=== PATIENT | male | born 1925 | race Caucasian/White ===

== ENCOUNTER 2016-09-15 12:19 | Inpatient (IN) | payer OTHER ==
[~2016-09-15] VITALS: Ht 177.8 cm; Wt 99.9 kg
[~2016-09-15 12:19] MED LIST: ACAR50TA9 PO; AMOX500T92; ASPI81CH43 PO; ATOR40TA52 PO; DIABETIC MED; FERR324T11; GLYB5TAB66 PO; LISI10TA6 PO; TAM04C PO; TRAM50TA2
[2016-09-15 12:56] LABS: Basophils # (auto) 0 uL; CONDITION Y; Eosinophils # (auto) 0.3 uL; Eosinophils % (auto) 2.5 % (0.0-7.0); Hematocrit 25.5 % (41.0-53.0); Hemoglobin 8.8 g/dL (13.5-17.5); Lymphocytes # (auto) 2.5 uL; Lymphocytes % (auto) 19.5 % (10.0-50.0); Mean Corpuscular Hemoglobin 31.4 pg (28.0-32.0); Mean Corpuscular Hgb Conc. 34.5 g/dL (32.0-36.0); Mean Corpuscular Volume 90.8 fL (80.0-100.0); Mean Platelet Volume 10.5 fL (7.4-10.4); Monocytes # (auto) 1.2 uL; Monocytes % (auto) 9.8 % (0.0-12.0); Neutrophils # (auto) 8.6 uL; Neutrophils % (auto) 68.2 % (37.0-80.0); Platelet Count (auto) 161 10^3/uL (140-450); Red Cell Distribution Width 13.7 % (11.6-16.0); White Blood Cell 12.6 10^3/uL (4.4-10.8)
[2016-09-15 13:22] LABS: Albumin 2.8 g/dL (3.4-5.0); Bilirubin, Total 0.3 mg/dL (0.2-1.0); Calcium 8.4 mg/dL (8.5-10.1); Potassium 4.3 mmol/L (3.5-5.1); Total Protein 6.6 g/dL (6.4-8.2)
[2016-09-15] MEDS ORDERED: ACETAMINOPHEN 500 MG TAB PO PRN (15:45)
[2016-09-15] MEDS ORDERED: DEXTROSE (50%) 50ML SYRG IV PRN (15:45)
[2016-09-15] MEDS ORDERED: PROMETHAZINE HCL 25 MG/ML 1ML IV PRN (15:45)
[2016-09-15] MEDS ORDERED: MORPHINE SULF INJ 2 MG/ML SYRINGE 1ML IV PRN (15:45)
[2016-09-15] MEDS ORDERED: cefTRIAXone 1GM/50ML D5W 50 ML IV ONE (15:45)
[2016-09-15] MEDS ORDERED: NITROGLYCERIN 0.4 MG SL TAB SL PRN (15:45)
[2016-09-15] MEDS ORDERED: LORazepam 0.5 MG TAB PO PRN (15:45)
[2016-09-15] MEDS ORDERED: TEMAZEPAM 15 MG CAP PO PRN (15:45)
[2016-09-15] MEDS ORDERED: HYDROcodone-ACET 5/325MG TAB PO PRN (15:45)
[2016-09-15 17:05] LABS: INR 1.01 (0.9-1.15); Partial Thromboplastin Time 28.6 sec (22.64-33.71)
[2016-09-15 17:49] LABS: Urine Bilirubin Negative (Negative); Urine Glucose Normal (Normal); Urine Ketone Negative (Negative); Urine Nitrite Negative (Negative); Urine RBC 804 /hpf (0 - 3); Urine Urobilinogen Normal (Negative)
[2016-09-15 17:51] LABS: Urine Blood 3+ /uL (Negative); Urine Color Pink (Yellow)
[2016-09-15] MEDS: SODIUM CHLORIDE 0.9% 1,000 ML IV SCH (18:08)
[2016-09-15] MEDS: InsuLIN REG 1unit/0.01ml Soln (100units/ml) SC SCH ×2 (18:29→22:00)
[2016-09-15] MEDS: ACCU-CHEK COMFORT CURVE STRIP VI SCH ×2 (18:29→22:00)
[2016-09-15 20:03] LABS: Hematocrit 27.6 % (41.0-53.0); Hemoglobin 9.6 g/dL (13.5-17.5)
[2016-09-15 22:31] VITALS: BP 147/72
[2016-09-15 23:20] LABS: Hematocrit 25.1 % (41.0-53.0); Hemoglobin 8.5 g/dL (13.5-17.5)
[2016-09-16] VITALS (9 sets, daily range): BP systolic 105–176; BP diastolic 58–84
[2016-09-16] MEDS: MORPHINE SULFATE 4 MG/ML SYRG IV PRN ×2 (01:46→06:58)
[2016-09-16] MEDS: SODIUM CHLORIDE 0.9% 1,000 ML IV SCH ×3 (01:47→22:40)
[2016-09-16 06:53] LABS: Basophils # (auto) 0 uL; Basophils % (auto) 0.4 % (0.0-2.0); CONDITION Y; Eosinophils # (auto) 0.4 uL; Hematocrit 25.5 % (41.0-53.0); Hemoglobin 8.7 g/dL (13.5-17.5); Lymphocytes # (auto) 1.4 uL; Lymphocytes % (auto) 13.1 % (10.0-50.0); Mean Corpuscular Hgb Conc. 34.3 g/dL (32.0-36.0); Mean Corpuscular Volume 93.3 fL (80.0-100.0); Mean Platelet Volume 10.5 fL (7.4-10.4); Monocytes # (auto) 1.1 uL; Monocytes % (auto) 10.4 % (0.0-12.0); Neutrophils # (auto) 7.5 uL; Neutrophils % (auto) 72.1 % (37.0-80.0); Platelet Count (auto) 112 10^3/uL (140-450); Red Cell Distribution Width 13.8 % (11.6-16.0); SUSPECT SEE PRINTOUT; White Blood Cell 10.4 10^3/uL (4.4-10.8)
[2016-09-16] MEDS: ACCU-CHEK COMFORT CURVE STRIP VI SCH ×4 (06:57→22:40)
[2016-09-16] MEDS: InsuLIN REG 1unit/0.01ml Soln (100units/ml) SC SCH ×4 (06:57→22:41)
[2016-09-16 07:24] LABS: Albumin 2.6 g/dL (3.4-5.0); BUN/Creatinine Ratio 16.3; Calcium 7.9 mg/dL (8.5-10.1); Potassium 4.4 mmol/L (3.5-5.1)
[2016-09-16 07:27] LABS: Bilirubin, Total 0.3 mg/dL (0.2-1.0); Total Protein 6.2 g/dL (6.4-8.2)
[2016-09-16] MEDS: cefTRIAXone 1GM/50ML D5W 50 ML IV SCH (10:18)
[2016-09-16] MEDS ORDERED: LEVO50TA7 PO (12:11)
[2016-09-16] MEDS ORDERED: hydrALAZINE HCL 25 MG TAB PO PRN (12:30)
[2016-09-16] MEDS ORDERED: traMADol HCL 50 MG TAB PO PRN (12:30)
[2016-09-16] MEDS: LEVOTHYROXINE SODIUM 50 MCG TAB PO SCH (13:20)
[2016-09-16] MEDS: glyBURIDE 5 MG TAB PO SCH (18:15)
[2016-09-16] MEDS: ACARBOSE 50 MG PO SCH (18:15)
[2016-09-16] MEDS ORDERED: TAMSULOSIN HYDROCHLORIDE 0.4 MG CAP PO SCH (22:00)
[2016-09-16] MEDS ORDERED: ATORVASTATIN 20 MG TAB PO SCH (22:00)
[2016-09-17 00:30] VITALS: BP 140/66
[2016-09-17] MEDS: MORPHINE SULFATE 4 MG/ML SYRG IV PRN (00:55)
[2016-09-17 05:04] VITALS: BP 125/59
[2016-09-17] MEDS: InsuLIN REG 1unit/0.01ml Soln (100units/ml) SC SCH ×2 (06:01→11:30)
[2016-09-17] MEDS: ACCU-CHEK COMFORT CURVE STRIP VI SCH ×2 (06:02→11:37)
[2016-09-17] MEDS: LEVOTHYROXINE SODIUM 50 MCG TAB PO SCH (06:08)
[2016-09-17 06:52] LABS: Basophils # (auto) 0 uL; Basophils % (auto) 0.4 % (0.0-2.0); CONDITION Y; DEFINITIVE SEE PRINTOUT; Eosinophils # (auto) 0.3 uL; Eosinophils % (auto) 2.6 % (0.0-7.0); Hematocrit 23.1 % (41.0-53.0); Hemoglobin 7.9 g/dL (13.5-17.5); Lymphocytes # (auto) 1.7 uL; Lymphocytes % (auto) 15.8 % (10.0-50.0); Mean Corpuscular Hemoglobin 31.1 pg (28.0-32.0); Mean Corpuscular Hgb Conc. 34.1 g/dL (32.0-36.0); Mean Corpuscular Volume 91.4 fL (80.0-100.0); Mean Platelet Volume 10.4 fL (7.4-10.4); Monocytes # (auto) 1.5 uL; Monocytes % (auto) 14.3 % (0.0-12.0); Neutrophils % (auto) 66.9 % (37.0-80.0); Platelet Count (auto) 132 10^3/uL (140-450); Red Cell Distribution Width 13.7 % (11.6-16.0); White Blood Cell 10.5 10^3/uL (4.4-10.8)
[2016-09-17 07:09] LABS: BUN/Creatinine Ratio 16.5; Calcium 7.6 mg/dL (8.5-10.1)
[2016-09-17] MEDS: glyBURIDE 5 MG TAB PO SCH (08:39)
[2016-09-17] MEDS: ACARBOSE 50 MG PO SCH ×2 (08:40→11:38)
[2016-09-17 09:00] VITALS: BP 129/69
[2016-09-17] MEDS ORDERED: PATIENTS OWN MEDICATION (Atorvastatin Calcium 40 MG) PO SCH ×2 (10:00)
[2016-09-17] MEDS: cefTRIAXone 1GM/50ML D5W 50 ML IV SCH (10:30)
[2016-09-17] MEDS: SODIUM CHLORIDE 0.9% 1,000 ML IV SCH (11:00)
[2016-09-17 12:49] VITALS: BP 128/72
== END 2016-09-17 13:50 | disposition home health service (06) | DRG 683 ==
LOC: EDBD 12:19 → ER 12:35 → TELE 12:36 → TELE-EAST 21:44
PROVIDERS: ADMIT Internal Medicine; ATTEND Family Medicine
DX: N17.9 Acute kidney failure, unspecified (principal); N39.0 Urinary tract infection, site not specified; D62 Acute posthemorrhagic anemia; I12.9 Hypertensive chronic kidney disease with stage 1 through stage 4 chronic kidney disease, or unspecified chronic kidney disease; E11.22 Type 2 diabetes mellitus with diabetic chronic kidney disease; R31.0 Gross hematuria; D63.1 Anemia in chronic kidney disease; B96.1 Klebsiella pneumoniae [K. pneumoniae] as the cause of diseases classified elsewhere; E03.9 Hypothyroidism, unspecified; I70.8 Atherosclerosis of other arteries; K40.20 Bilateral inguinal hernia, without obstruction or gangrene, not specified as recurrent; K59.00 Constipation, unspecified; N18.3 Chronic kidney disease, stage 3 (moderate); N32.89 Other specified disorders of bladder; N36.5 Urethral false passage; N40.0 Benign prostatic hyperplasia without lower urinary tract symptoms; Z96.651 Presence of right artificial knee joint; G56.02 Carpal tunnel syndrome, left upper limb; D63.8 Anemia in other chronic diseases classified elsewhere; Z90.89 Acquired absence of other organs
CPT/HCPCS: 36415; 51702; 71010; 74176; 76775; 80048; 80053; 81001; 82150; 82962; 83036; 83605; 83690; 83735; 85014; 85018; 85025; 85610; 85652; 85730; 87040; 87086; 87088; 87186; 93005; J0696; J1815

== ENCOUNTER 2017-02-26 09:24 | Inpatient (IN) | payer OTHER ==
[~2017-02-26] VITALS: Ht 180.3 cm; Wt 92.5 kg
[~2017-02-26 09:24] MED LIST changes: +LEVO50TA7 PO
[2017-02-26 10:47] LABS: Hematocrit 28.1 % (41.0-53.0); Hemoglobin 9.2 g/dL (13.5-17.5); Mean Corpuscular Hemoglobin 31.1 pg (28.0-32.0); Mean Corpuscular Hgb Conc. 32.6 g/dL (32.0-36.0); Mean Corpuscular Volume 95.5 fL (80.0-100.0); Platelet Count (auto) 75 10^3/uL (140-450); Red Blood Cells 2.94 10^6/uL (4.5-5.90); Red Cell Distribution Width 13.9 % (11.8-14.3); White Blood Cell 7.9 10^3/uL (4.4-10.8)
[2017-02-26 10:56] LABS: Band Neutrophils % (manual) 0; Basophils % (manual) 0 (0.0-2.0); Blast Cells 0; Eosinophils % (manual) 0 (0-7); Metamyelocytes % 0; Myelocytes % 0; Promyelocytes % 0; Reactive Lymphocytes 0
[2017-02-26 11:16] LABS: Albumin 3.2 g/dL (3.4-5.0); BUN/Creatinine Ratio 15.3; Bilirubin, Total 0.3 mg/dL (0.2-1.0); Calcium 8.3 mg/dL (8.5-10.1); Magnesium 2.6 mg/dL (1.6-2.6); Total Protein 6.7 g/dL (6.4-8.2)
[2017-02-26 11:30] LABS: Potassium 5.7 mmol/L (3.5-5.1)
[2017-02-26 12:08] LABS: Lymphocytes % (manual) 11 (10.0-50.0); Monocytes % (manual) 12 (0-12)
[2017-02-26 12:57] LABS: INR 1.05 (0.9-1.15); Partial Thromboplastin Time 30.7 sec (22.64-33.71); Prothrombin Time 11.4 sec (9.37-12.3)
[2017-02-26] MEDS ORDERED: InsuLIN REG 1unit/0.01ml Soln (100units/ml) SC ONE (16:15)
[2017-02-26] MEDS ORDERED: SODIUM POLYSTYRENE SULF 15GM/60ML SUSP PO ONE (16:15)
[2017-02-26] MEDS ORDERED: CALCIUM GLUC 4.65meq/50ml D5AE 50 ML IV ONE (16:15)
[2017-02-26] MEDS ORDERED: SODIUM BICARBONATE 8.4 % INJ 50ML VIAL IV ONE (16:15)
[2017-02-26] MEDS ORDERED: DEXTROSE (50%) 50ML SYRG IV PRN (16:15)
[2017-02-26] MEDS ORDERED: DEXTROSE (50%) 50ML SYRG IV ONE (16:15)
[2017-02-26] MEDS ORDERED: TEMAZEPAM 15 MG CAP PO PRN (16:30)
[2017-02-26] MEDS ORDERED: MORPHINE SULF INJ 2 MG/ML SYRINGE 1ML IV PRN ×2 (16:30)
[2017-02-26] MEDS ORDERED: DOCUSATE SOD 100 MG CAP PO PRN (16:30)
[2017-02-26] MEDS ORDERED: cloNIDine HCL 0.1 MG TAB PO PRN (16:30)
[2017-02-26] MEDS ORDERED: NITROGLYCERIN 0.4 MG SL TAB SL PRN (16:30)
[2017-02-26] MEDS ORDERED: ACETAMINOPHEN 325 MG TAB PO PRN (16:30)
[2017-02-26] MEDS ORDERED: HYDROcodone-ACET 5/325MG TAB PO PRN (16:30)
[2017-02-26] MEDS ORDERED: ONDANSETRON HCL 4 MG/2 ML VIAL IV PRN (16:30)
[2017-02-26] MEDS: InsuLIN REG 1unit/0.01ml Soln (100units/ml) SC SCH ×2 (17:10→22:00)
[2017-02-26] MEDS: ACCU-CHEK COMFORT CURVE STRIP VI SCH ×2 (17:10→22:10)
[2017-02-26] MEDS: FAMOTIDINE 20 MG TAB PO SCH (17:13)
[2017-02-26] MEDS: ACARBOSE 50 MG PO SCH (17:15)
[2017-02-26 17:46] LABS: Urine Bacteria NONE SEEN /hpf (None Seen); Urine Blood TRACE /uL (Negative); Urine Specific Gravity 1.015 (1.001-1.035); Urine WBC 2 /hpf (0 - 3)
[2017-02-26] MEDS: FERROUS SULFATE 325 MG TAB PO SCH (18:07)
[2017-02-26] MEDS: Boost Glucose Control 8 Ounces PO SCH (19:03)
[2017-02-26] MEDS: SODIUM CHLOR 0.9% PF (SALINE LOCK) 10ML VIAL IV SCH (20:03)
[2017-02-26 20:24] LABS: Albumin 3.3 g/dL (3.4-5.0); BUN/Creatinine Ratio 15.4; Bilirubin, Total 0.3 mg/dL (0.2-1.0); Calcium 8.4 mg/dL (8.5-10.1); Potassium 4.6 mmol/L (3.5-5.1); Total Protein 6.9 g/dL (6.4-8.2)
[2017-02-26] MEDS: AREDS PO SCH (22:00)
[2017-02-27 06:25] LABS: Basophils # (auto) 0 uL; Basophils % (auto) 0.5 % (0.0-2.0); Eosinophils # (auto) 0 uL; Eosinophils % (auto) 0.5 % (0.0-7.0); Hematocrit 28.2 % (41.0-53.0); Hemoglobin 9.3 g/dL (13.5-17.5); Lymphocytes # (auto) 1.5 uL; Lymphocytes % (auto) 17.4 % (10.0-50.0); Mean Corpuscular Hemoglobin 31.1 pg (28.0-32.0); Mean Corpuscular Hgb Conc. 33.1 g/dL (32.0-36.0); Mean Corpuscular Volume 93.8 fL (80.0-100.0); Monocytes # (auto) 1.4 uL; Monocytes % (auto) 15.8 % (0.0-12.0); Neutrophils # (auto) 5.7 uL; Neutrophils % (auto) 65.8 % (37.0-80.0); Platelet Count (auto) 72 10^3/uL (140-450); Red Cell Distribution Width 14.3 % (11.8-14.3); White Blood Cell 8.6 10^3/uL (4.4-10.8)
[2017-02-27 06:40] LABS: BUN/Creatinine Ratio 16.1; Calcium 8.1 mg/dL (8.5-10.1); Potassium 5.3 mmol/L (3.5-5.1)
[2017-02-27] MEDS: SODIUM CHLOR 0.9% PF (SALINE LOCK) 10ML VIAL IV SCH ×3 (06:40→21:16)
[2017-02-27 06:41] LABS: Bilirubin, Total 0.2 mg/dL (0.2-1.0); Total Protein 6.4 g/dL (6.4-8.2)
[2017-02-27] MEDS: ACCU-CHEK COMFORT CURVE STRIP VI SCH ×4 (07:47→21:06)
[2017-02-27] MEDS: InsuLIN REG 1unit/0.01ml Soln (100units/ml) SC SCH ×4 (07:50→21:17)
[2017-02-27] MEDS: ACARBOSE 50 MG PO SCH ×3 (08:00→17:52)
[2017-02-27] MEDS: FERROUS SULFATE 325 MG TAB PO SCH ×3 (08:01→17:52)
[2017-02-27] MEDS: LEVOTHYROXINE SODIUM 25 MCG TAB PO SCH (08:01)
[2017-02-27] MEDS: glipiZIDE 5 MG TAB PO SCH (08:01)
[2017-02-27] MEDS: Boost Glucose Control 8 Ounces PO SCH ×3 (08:57→18:00)
[2017-02-27] MEDS ORDERED: ENOXAPARIN SOD 30 MG/0.3 ML SYRINGE SC SCH (10:00)
[2017-02-27] MEDS: AREDS PO SCH ×2 (10:00→21:17)
[2017-02-27] MEDS ORDERED: LOSARTAN POTASSIUM 25 MG TAB PO SCH (10:00)
[2017-02-27] MEDS: FAMOTIDINE 20 MG TAB PO SCH (10:49)
[2017-02-27] MEDS: MULTIPLE VITAMIN TAB PO SCH (10:50)
[2017-02-27] MEDS: SOD CHL 0.45% 1,000 ML IV SCH (10:59)
[2017-02-27] MEDS ORDERED: ASPirin 81 mg TAB PO ONE (11:00)
[2017-02-27 18:30] VITALS: BP 123/58
[2017-02-27 19:42] VITALS: BP 138/79
[2017-02-28] VITALS: BP 125/64
[2017-02-28] MEDS: SOD CHL 0.45% 1,000 ML IV SCH ×2 (00:05→13:25)
[2017-02-28 04:00] VITALS: BP 128/67
[2017-02-28] MEDS: LEVOTHYROXINE SODIUM 25 MCG TAB PO SCH (06:09)
[2017-02-28] MEDS: ACCU-CHEK COMFORT CURVE STRIP VI SCH ×4 (06:11→21:13)
[2017-02-28] MEDS: SODIUM CHLOR 0.9% PF (SALINE LOCK) 10ML VIAL IV SCH ×3 (06:11→21:13)
[2017-02-28] MEDS: InsuLIN REG 1unit/0.01ml Soln (100units/ml) SC SCH ×4 (06:11→21:12)
[2017-02-28] MEDS: glipiZIDE 5 MG TAB PO SCH (06:11)
[2017-02-28 08:00] VITALS: BP 128/98
[2017-02-28] MEDS: Boost Glucose Control 8 Ounces PO SCH ×3 (08:00→18:40)
[2017-02-28] MEDS: FERROUS SULFATE 325 MG TAB PO SCH ×3 (09:21→18:40)
[2017-02-28] MEDS: ACARBOSE 50 MG PO SCH (09:21)
[2017-02-28] MEDS ORDERED: ASPirin 81 mg TAB PO SCH (10:00)
[2017-02-28] MEDS: MULTIPLE VITAMIN TAB PO SCH (10:11)
[2017-02-28] MEDS: FAMOTIDINE 20 MG TAB PO SCH (10:11)
[2017-02-28] MEDS: AREDS PO SCH ×2 (10:15→21:13)
[2017-02-28 11:16] LABS: Urine Amorphous Crystal FEW /hpf (None Seen); Urine Bacteria NONE SEEN /hpf (None Seen); Urine Blood 1+ /uL (Negative); Urine Specific Gravity 1.013 (1.001-1.035); Urine WBC 1 /hpf (0 - 3)
[2017-02-28 11:48] LABS: Creatinine, Urine 84.7 mg/dL (30.0-125.0); Protein, Urine 150.9 mg/dL (0.0-11.9)
[2017-02-28 12:10] VITALS: BP 119/75
[2017-02-28] MEDS ORDERED: ENOXAPARIN SOD 100 MG/1 ML SYRINGE SC SCH (13:15)
[2017-02-28 13:36] LABS: Basophils # (auto) 0 uL; Basophils % (auto) 0.4 % (0.0-2.0); Eosinophils # (auto) 0.1 uL; Hematocrit 25.8 % (41.0-53.0); Hemoglobin 8.6 g/dL (13.5-17.5); Lymphocytes # (auto) 1.6 uL; Lymphocytes % (auto) 22.3 % (10.0-50.0); Mean Corpuscular Hemoglobin 31.2 pg (28.0-32.0); Mean Corpuscular Hgb Conc. 33.5 g/dL (32.0-36.0); Mean Corpuscular Volume 93.3 fL (80.0-100.0); Monocytes # (auto) 0.9 uL; Monocytes % (auto) 12.7 % (0.0-12.0); Neutrophils # (auto) 4.4 uL; Neutrophils % (auto) 63.6 % (37.0-80.0); Platelet Count (auto) 71 10^3/uL (140-450); Red Blood Cells 2.76 10^6/uL (4.5-5.90); Red Cell Distribution Width 14.1 % (11.8-14.3)
[2017-02-28 14:28] LABS: Potassium 4.5 mmol/L (3.5-5.1)
[2017-02-28 14:29] LABS: Albumin 2.8 g/dL (3.4-5.0); BUN/Creatinine Ratio 16.6; Bilirubin, Total 0.3 mg/dL (0.2-1.0); Calcium 7.7 mg/dL (8.5-10.1); Magnesium 2.2 mg/dL (1.6-2.6); Total Protein 6.2 g/dL (6.4-8.2)
[2017-02-28] MEDS: METOPROLOL TARTRATE 25 MG TAB PO SCH ×2 (14:50→21:14)
[2017-02-28 15:18] LABS: Phosphorus 3.6 mg/dL (2.5-4.90); Uric Acid 8.1 mg/dL (3.5-7.2)
[2017-02-28 15:44] VITALS: BP 141/68
[2017-02-28] MEDS: ENOXAPARIN SOD 30 MG/0.3 ML SYRINGE SC SCH (17:42)
[2017-02-28 20:02] VITALS: BP 153/66
[2017-02-28] MEDS: ATORVASTATIN 20 MG TAB PO SCH (21:14)
[2017-03-01] VITALS (7 sets, daily range): BP systolic 122–162; BP diastolic 58–90
[2017-03-01] MEDS: SOD CHL 0.45% 1,000 ML IV SCH ×2 (02:50→17:13)
[2017-03-01 06:02] LABS: Basophils # (auto) 0 uL; Eosinophils # (auto) 0.1 uL; Mean Corpuscular Hgb Conc. 34.5 g/dL (32.0-36.0); Neutrophils # (auto) 3.4 uL; Red Cell Distribution Width 13.7 % (11.8-14.3); White Blood Cell 5.9 10^3/uL (4.4-10.8)
[2017-03-01 06:05] LABS: Basophils % (auto) 0.2 % (0.0-2.0); Eosinophils % (auto) 1.3 % (0.0-7.0); Hemoglobin 7.9 g/dL (13.5-17.5); Lymphocytes # (auto) 1.5 uL; Mean Corpuscular Hemoglobin 31.8 pg (28.0-32.0); Mean Corpuscular Volume 92.3 fL (80.0-100.0); Monocytes % (auto) 16.2 % (0.0-12.0); Neutrophils % (auto) 57.3 % (37.0-80.0); Nucleated Red Blood Cells % 0.1 %; Platelet Count (auto) 59 10^3/uL (140-450); Red Blood Cells 2.49 10^6/uL (4.5-5.90)
[2017-03-01] MEDS: InsuLIN REG 1unit/0.01ml Soln (100units/ml) SC SCH ×4 (06:07→22:00)
[2017-03-01] MEDS: ACCU-CHEK COMFORT CURVE STRIP VI SCH ×4 (06:08→22:08)
[2017-03-01] MEDS: SODIUM CHLOR 0.9% PF (SALINE LOCK) 10ML VIAL IV SCH ×3 (06:08→22:08)
[2017-03-01] MEDS: LEVOTHYROXINE SODIUM 25 MCG TAB PO SCH (06:21)
[2017-03-01] MEDS: glipiZIDE 5 MG TAB PO SCH (06:21)
[2017-03-01 06:37] LABS: Potassium 4.4 mmol/L (3.5-5.1)
[2017-03-01 06:38] LABS: BUN/Creatinine Ratio 17.7; Calcium 7.5 mg/dL (8.5-10.1); Magnesium 2.2 mg/dL (1.6-2.6)
[2017-03-01] MEDS: Boost Glucose Control 8 Ounces PO SCH ×3 (08:00→19:22)
[2017-03-01] MEDS: AREDS PO SCH ×2 (10:39→22:08)
[2017-03-01] MEDS: FERROUS SULFATE 325 MG TAB PO SCH ×3 (10:40→17:48)
[2017-03-01] MEDS: METOPROLOL TARTRATE 25 MG TAB PO SCH ×2 (10:40→22:07)
[2017-03-01] MEDS: ENOXAPARIN SOD 30 MG/0.3 ML SYRINGE SC SCH (10:41)
[2017-03-01] MEDS: FAMOTIDINE 20 MG TAB PO SCH (10:41)
[2017-03-01] MEDS: MULTIPLE VITAMIN TAB PO SCH (10:41)
[2017-03-01] MEDS ORDERED: traMADol HCL 50 MG TAB PO PRN (11:15)
[2017-03-01] MEDS: ATORVASTATIN 20 MG TAB PO SCH (22:07)
[2017-03-02 05:31] VITALS: BP 144/81
[2017-03-02] MEDS: SOD CHL 0.45% 1,000 ML IV SCH (06:48)
[2017-03-02] MEDS: LEVOTHYROXINE SODIUM 25 MCG TAB PO SCH (06:50)
[2017-03-02] MEDS: glipiZIDE 5 MG TAB PO SCH (06:52)
[2017-03-02] MEDS: InsuLIN REG 1unit/0.01ml Soln (100units/ml) SC SCH ×3 (06:52→17:00)
[2017-03-02] MEDS: ACCU-CHEK COMFORT CURVE STRIP VI SCH ×3 (06:52→17:00)
[2017-03-02] MEDS: SODIUM CHLOR 0.9% PF (SALINE LOCK) 10ML VIAL IV SCH ×2 (06:52→16:21)
[2017-03-02] MEDS: FAMOTIDINE 20 MG TAB PO SCH (06:53)
[2017-03-02] MEDS: FERROUS SULFATE 325 MG TAB PO SCH ×2 (06:53→11:58)
[2017-03-02] MEDS: AREDS PO SCH (06:53)
[2017-03-02] MEDS: ENOXAPARIN SOD 30 MG/0.3 ML SYRINGE SC SCH (06:53)
[2017-03-02 06:54] LABS: Basophils # (auto) 0 uL; Basophils % (auto) 0.2 % (0.0-2.0); Eosinophils # (auto) 0.1 uL; Eosinophils % (auto) 1.8 % (0.0-7.0); Hematocrit 25.4 % (41.0-53.0); Hemoglobin 8.7 g/dL (13.5-17.5); Lymphocytes # (auto) 1.4 uL; Lymphocytes % (auto) 23.4 % (10.0-50.0); Mean Corpuscular Hemoglobin 31.1 pg (28.0-32.0); Mean Corpuscular Volume 91.4 fL (80.0-100.0); Monocytes # (auto) 0.9 uL; Monocytes % (auto) 14.3 % (0.0-12.0); Neutrophils # (auto) 3.6 uL; Neutrophils % (auto) 60.3 % (37.0-80.0); Nucleated Red Blood Cells % 0.1 %; Platelet Count (auto) 71 10^3/uL (140-450); Red Blood Cells 2.78 10^6/uL (4.5-5.90); Red Cell Distribution Width 13.6 % (11.8-14.3)
[2017-03-02] MEDS: MULTIPLE VITAMIN TAB PO SCH (06:59)
[2017-03-02 07:09] LABS: BUN/Creatinine Ratio 18.6; Calcium 8.1 mg/dL (8.5-10.1); Magnesium 2.2 mg/dL (1.6-2.6); Potassium 4.3 mmol/L (3.5-5.1)
[2017-03-02 08:11] VITALS: BP 129/70
[2017-03-02 09:24] LABS: Hepatitis B Surface Antibody Negative
[2017-03-02 09:35] LABS: Hepatitis B Surface Antigen Negative (Negative)
[2017-03-02] MEDS: METOPROLOL TARTRATE 25 MG TAB PO SCH (10:00)
[2017-03-02 10:04] LABS: Hepatitis B Core Total AB Negative
[2017-03-02] MEDS ORDERED: TRAM50TA2 PO (10:48)
[2017-03-02] MEDS ORDERED: LEVO75TA50 PO (10:48)
[2017-03-02] MEDS ORDERED: FERR-20 PO (10:48)
[2017-03-02] MEDS ORDERED: GLIP10TA59 PO (10:48)
[2017-03-02] MEDS: Boost Glucose Control 8 Ounces PO SCH ×2 (11:59→16:23)
[2017-03-02 13:17] VITALS: BP 147/82
[2017-03-02 16:59] VITALS: BP 125/71
[2017-03-02 17:20] VITALS: BP 126/71
== END 2017-03-02 18:54 | DRG 280 ==
LOC: ER 09:24 → EDBD 09:24 → TELE 09:25 → DOU IN ICU 02-27 18:32 → TELE-CENTR 03-01 14:30 → UNDODISIN 03-02 14:40
PROVIDERS: ADMIT Internal Medicine; ATTEND Family Medicine
DX: I21.4 Non-ST elevation (NSTEMI) myocardial infarction (principal); G93.41 Metabolic encephalopathy; N17.0 Acute kidney failure with tubular necrosis; E44.0 Moderate protein-calorie malnutrition; E87.2 Acidosis; D69.6 Thrombocytopenia, unspecified; E11.21 Type 2 diabetes mellitus with diabetic nephropathy; N18.4 Chronic kidney disease, stage 4 (severe); E83.51 Hypocalcemia; E87.5 Hyperkalemia; I50.42 Chronic combined systolic (congestive) and diastolic (congestive) heart failure; I13.0 Hypertensive heart and chronic kidney disease with heart failure and stage 1 through stage 4 chronic kidney disease, or unspecified chronic kidney disease; W19.XXXA Unspecified fall, initial encounter; E78.5 Hyperlipidemia, unspecified; E03.9 Hypothyroidism, unspecified; D63.8 Anemia in other chronic diseases classified elsewhere; N40.0 Benign prostatic hyperplasia without lower urinary tract symptoms; I65.23 Occlusion and stenosis of bilateral carotid arteries; H35.30 Unspecified macular degeneration; I25.2 Old myocardial infarction; Z86.73 Personal history of transient ischemic attack (TIA), and cerebral infarction without residual deficits; Z79.82 Long term (current) use of aspirin; Z82.49 Family history of ischemic heart disease and other diseases of the circulatory system; Z90.89 Acquired absence of other organs; Z68.28 Body mass index [BMI] 28.0-28.9, adult; Y93.89 Activity, other specified; Y92.89 Other specified places as the place of occurrence of the external cause; Y99.8 Other external cause status
CPT/HCPCS: 36415; 70450; 70551; 71045; 73562; 76700; 80048; 80053; 80061; 81001; 82550; 82570; 82607; 82962; 83036; 83615; 83735; 83880; 84100; 84156; 84300; 84443; 84484; 84550; 85007; 85025; 85027; 85610; 85730; 86038; 86704; 86706; 86803; 87040; 87081; 87086; 87340; 93005; 93306; 93886; 95819; 96361; 96365; 96375; 97110; 97116; 97530; J0610; J1815; J2405